=== PATIENT | male | born 2000 | race Caucasian/White ===

== ENCOUNTER 2022-01-27 03:15 | Emergency (ER) | payer OTHER ==
[~2022-01-27] VITALS: Ht 182.9 cm; Wt 104.8 kg
[2022-01-27] MEDS ORDERED: IBUPROFEN 600 MG TABLET ONE (04:18)
[2022-01-27] MEDS ORDERED: ACETAMINOPHEN 500 MG TABLET ONE (04:20)
[2022-01-27] MEDS ORDERED: LIDOCAINE/PRILOCAINE CREAM 5GM TUBE TP SCH (05:00)
[2022-01-27] MEDS ORDERED: CEPH500B PO (05:16)
[2022-01-27] MEDS ORDERED: IBUP-2070 PO (05:16)
[2022-01-27 05:20] VITALS: BP 132/52
[2022-01-27] MEDS ORDERED: CEPHALEXIN 500 MG CAPSULE PO ONE (05:30)
== END 2022-01-27 05:21 | disposition home or self-care (01) ==
LOC: EDBD 03:15 → EDH 03:15
DX: L03.114 Cellulitis of left upper limb (principal); M71.522 Other bursitis, not elsewhere classified, left elbow; Z88.0 Allergy status to penicillin
CPT/HCPCS: 99284; J3490